=== PATIENT | female | born 1965 | race Caucasian/White ===

== ENCOUNTER 2018-08-06 09:49 | Emergency (ER) | payer OTHER ==
[2018-08-06] MEDS: ACETAMINOPHEN 325 MG TAB PO (10:50)
== END 2018-08-06 12:29 | disposition home or self-care (01) ==
LOC: FTE 09:49
DX: S92.352A Displaced fracture of fifth metatarsal bone, left foot, initial encounter for closed fracture (principal); F84.0 Autistic disorder; X58.XXXA Exposure to other specified factors, initial encounter; Y92.9 Unspecified place or not applicable
CPT/HCPCS: 73562; 73610; 73630-LT; 99283-25